=== PATIENT | female | born 1960 | race Caucasian/White ===

== ENCOUNTER 2017-06-17 12:18 | Observation (INO) | payer BC ==
[2017-06-17] MEDS ORDERED: PROVENTIL 2.5 MG/3 ML NEB IH ONE ×2 (12:54)
[2017-06-17] MEDS ORDERED: solu-MEDROL 125 MG IV ONE (12:54)
[2017-06-17] MEDS ORDERED: Sodium Chloride 0.9% 1000 ML 1,000 ML IV STA (12:54)
[2017-06-17] MEDS ORDERED: FEVERALL 650 MG PR STA (13:11)
--- NOTE | 2017-06-17 13:11 | ERPHSYRPT ---
- History of Present Illness Time Seen by Provider: 06/17/17 12:50 Source: patient Patient Subjective Stated Complaint: PT STATES SHE WAS SENT FROM DR'S OFFICE FOR LOW O2 SATURATION AND FLU. Triage Nursing Assessment: PT PINK, WARM, DRY. LUNG SOUNDS DIMINISHED IN LEFT POSTERIOR LOBE. PT FEBRILE 102.8. Physician History: CC: flu Hx: 56 y/o patient with hx of COPD and prior lung resection. She has cough, vomiting, malaise for one week since . She went to doctor office and had flu positive. She had low oxygen in 84% range even after neb so was sent to ER. She sees Dr Asencio. She had fever and chills. Timing/Duration: week(s) (1) Allergies/Adverse Reactions: Penicillins Allergy (Verified 06/17/17 13:04) Home Medications: Tiotropium [place] Inhaler [Spiriva 18 Mcg/Cap Inhaler] 1 puff IH DAILY [History] Famotidine 20 mg PO DAILY 06/17/17 [History] Metoprolol Tartrate 25 mg [Lopressor 25MG Tab] 25 mg PO DAILY 06/17/17 [ History] Hx Tetanus, Diphtheria Vaccination/Date Given: Yes (UNKNOWN) Hx Influenza Vaccination/Date Given: No Hx Pneumococcal Vaccination/Date Given: No Immunizations Up to Date: Yes - Review of Systems Constitutional: Fever, Chills, Fatigue, Malaise, Weakness Eyes: No Symptoms Ears, Nose, & Throat: Nose Congestion Respiratory: Cough, Dyspnea, Wheezing Cardiac: No Chest Pain Abdominal/Gastrointestinal: Nausea, Vomiting, Diarrhea, No Abdominal Pain Genitourinary Symptoms: No Dysuria Musculoskeletal: Myalgias Skin: No Rash Neurological: Headache All Other Systems: Reviewed and Negative - Past Medical History Pertinent Past Medical History: Yes Neurological History: Migraines ENT History: Other Cardiac History: High Cholesterol Respiratory History: COPD Endocrine Medical History: No Pertinent History Musculoskeletal History: No Pertinent History GI Medical History: Gallbladder Disease History: No Pertinent History Psycho-Social History: No Pertinent History Female Reproductive Disorders: No Pertinent History Other Medical History: occular migrains, detatched retina in rt eye - Past Surgical History Past Surgical History: Yes Respiratory: Lobectomy Gastrointestinal: Cholecystectomy, Hernia Repair Female Surgical History: Hysterectomy, Tubal Ligation Other Surgical History: ABLATION-UTERINE. LUNG SURGERY - Social History Smoking Status: Former smoker How long have you smoked: 43 Exposure to second hand smoke: Yes Drug Use: none Patient Lives Alone: No - Female History Hx Now: No - Nursing Vital Signs Nursing Vital Signs: Initial Vital Signs O2 Sat by Pulse Oximetry 91 L 06/17/17 12:40 Pain Scale Pain Intensity 0 - Physical Exam General Appearance: alert, other (frail appearing) Eye Exam: PERRL/EOMI Ears, Nose, Throat Exam: dry mucous membranes Neck Exam: normal inspection, non-tender, supple Respiratory Exam: rhonchi, wheezing Cardiovascular Exam: regular rate/rhythm, tachycardia Gastrointestinal/Abdomen Exam: soft, No tenderness, No distention Back Exam: normal inspection Extremity Exam: normal inspection, normal range of motion, No calf tenderness, No pedal edema Neurologic Exam: alert, oriented x 3, cooperative, sensation nml, No motor deficits Skin Exam: warm, dry, No rash SpO2 Interpretation: hypoxic, O2 applied SpO2: 91 Oxygen Delivery: Room Air - Course Nursing assessment & vital signs reviewed: Yes - Radiology Exams cxr X-ray Interpretation: Teleradiologist Report (new right base infiltrate/ atelecatasis, stable hital hernia with intrathoracic stomach) Ordered Tests: Active Orders 24 hr Category Date Time Status Radio Electrician STAT Care 06/17/17 12:55 Active EKG-ER Only STAT Care 06/17/17 12:54 Active IV Insertion STAT Care 06/17/17 12:54 Active Oxygen-ED Only NASAL CANNULA 2 lpm Care 06/17/17 12:50 Active Pulse Oximetry (ED) STAT Care 06/17/17 12:50 Active CHEST 1 VIEW (PORTABLE) Stat Exams 06/17/17 12:54 Completed BLOOD CULTURE Stat Lab 06/17/17 13:26 Received CBC W DIFF Stat Lab 06/17/17 13:20 Completed CMP Stat Lab 06/17/17 13:20 Completed Lactic Acid Stat Lab 06/17/17 13:18 Completed VENOUS BLOOD GAS Stat Lab 06/17/17 13:18 Completed Respiratory Nebulizer STAT RT 06/17/17 12:55 Completed Medication Summary Discontinued Medications Generic Name Dose Route Start Last Admin Trade Name Freq PRN Reason Stop Dose Admin Acetaminophen 975 mg 06/17/17 13:11 Feverall 650 Mg UT 06/17/17 13:12 STAT STA Acetaminophen 600 mg 06/17/17 13:20 06/17/17 13:35 Tylenol Suspension 160 Mg/5 Ml PO 06/17/17 13:21 600 mg STAT ONE Administration Acetaminophen Confirm 06/17/17 13:25 Tylenol Infant Drops Administered 06/17/17 13:26 Dose 160 mg .ROUTE .STK-MED ONE Acetaminophen Confirm 06/17/17 13:26 Tylenol Suspension 160 Mg/5 Ml Administered 06/17/17 13:27 Dose 160 mg .ROUTE .STK-MED ONE Albuterol Sulfate Confirm 06/17/17 12:54 Proventil 2.5 Mg/3 Ml Neb Administered 06/17/17 12:55 Dose 2.5 mg IH .STK-MED ONE Albuterol Sulfate 2.5 mg 06/17/17 12:54 06/17/17 13:02 Proventil 2.5 Mg/3 Ml Neb IH 06/17/17 12:55 2.5 mg STAT ONE Administration Sodium Chloride 1,000 mls @ 999 mls/hr 06/17/17 12:54 06/17/17 13:31 Sodium Chloride 0.9% 1000 Ml IV 06/17/17 13:54 999 mls/hr .Q1H1M STA Administration Sodium Chloride Confirm 06/17/17 13:25 Sodium Chloride 0.9% 1000 Ml Administered 06/17/17 13:26 Dose 1,000 mls @ ud .ROUTE .STK-MED ONE Ceftriaxone Sodium/Dextrose 1 g in 50 mls @ 100 mls/hr 06/17/17 13:35 13:53 Rocephin 1 Gm-D5w 50 Ml Bag IV 06/17/17 14:04 100 mls/hr STAT STA Administration Azithromycin 500 mg in 250 mls @ 250 mls/hr 06/17/17 13:35 Zithromax 500 Mg/ 250 Ml Nacl Premix IV 06/17/17 14:34 STAT STA Ceftriaxone Sodium/Dextrose Confirm 06/17/17 13:46 Rocephin 1 Gm-D5w 50 Ml Bag Administered 06/17/17 13:47 Dose 1 g in 50 mls @ ud IV .STK-MED ONE Methylprednisolone Sodium Succinate 125 mg 06/17/17 12:54 06/17/17 13:31 Solu-Medrol 125 Mg IV 06/17/17 12:55 125 mg STAT ONE Administration Methylprednisolone Sodium Succinate Confirm 06/17/17 13:25 Solu-Medrol 125 Mg Administered 06/17/17 13:26 Dose 125 mg .ROUTE .STK-MED ONE Lab/Rad Data: Laboratory Result Diagrams 06/17/17 13:20 06/17/17 13:20 Laboratory Results 06/17/17 06/17/17 06/17/17 Range/Units 13:20 13:20 13:18 WBC 3.2 L (4.0-10.5) K/mm3 RBC 4.68 (4.1-5.4) M/mm3 Hgb 14.1 (12.0-16.0) gm/dl Hct 43.1 (35-47) % MCV 92.1 (78-100) fl MCH 30.1 (26-32) pg MCHC 32.7 (32-36) g/dl RDW 15.8 H (11.5-14.0) % Plt Count 147 L (150-450) K/mm3 MPV 10.4 H (6-9.5) fl Gran % 56.0 (36.0-66.0) % Lymphocytes % 34.0 (24.0-44.0) % Monocytes % 9.7 (0.0-12.0) % Eosinophils % 0.0 (0.00-5.0) % Basophils % 0.3 (0.0-0.4) % Basophils # 0.01 (0-0.4) VBG pH 7.36 (7.32-7.42) VBG pCO2 at Pat Temp 51 (42-55) mm/Hg VBG pO2 at Pat Temp 22 L (25-40) mm/Hg VBG HCO3 28.8 H (22-28) meq/L VBG O2 Sat (Gisela) 49.3 L (95-100) VBG Base Excess 2.2 H (-2.0-2.0) VBG Hemoglobin 14.9 VBG Carboxyhemoglobin 2.0 (0.0-6.9) % T HGB POC Potassium 3.4 L (3.5-5.1) Sodium 137 (136-145) mEq/L Potassium 3.5 (3.5-5.1) mEq/L Chloride 99 (98-107) mEq/L Carbon Dioxide 26.8 (21-32) mEq/L Anion Gap 15.1 H (5-15) MEQ/L BUN 8 L (9-20) mg/dL Creatinine 0.95 (0.55-1.30) mg/dl Estimated GFR > 60 ML/MIN Glucose 94 (70-110) MG/DL Lactic Acid 1.1 (0.4-2.0) Calcium 8.6 (8.5-10.1) mg/dL Total Bilirubin 0.30 (0.2-1.0) mg/dL AST 37 (15-37) U/L ALT 25 (12-78) U/L Alkaline Phosphatase 79 (46-116) U/L Serum Total Protein 7.8 (6.4-8.2) gm/dL Albumin 3.8 (3.4-5.0) g/dL - Progress Progress Note: 06/17/17 14:39 She has flu, pneumonia and COPD with hypoxemia. CAlled Dr Asencio for observation. He advised no tamiflu since symptoms for one week. Discussed with : Jack Will see patient in: hospital (observation) Counseled pt/family regarding: lab results, diagnosis, need for follow-up - Departure Time of Disposition: 14:39 Departure Disposition: Observation Clinical Impression: Influenza, COPD exacerbation, Hypoxemia Condition: Fair Critical Care Time: No Referrals: CICI ASENCIO MD [Primary Care Provider] - Instructions: Chronic Obstructive Pulmonary Disease
[2017-06-17] MEDS ORDERED: TYLENOL SUSPENSION 160 MG/5 ML PO ONE (13:20)
[2017-06-17 13:22] LABS: Lactic Acid 1.1 (0.4-2.0); VBG BASE EXCESS 2.2 (-2.0-2.0); VBG HCO3- 28.8 meq/L (22-28); VBG HEMOGLOBIN 14.9; VBG O2 SATURATION 49.3 (95-100); VBG POTASSIUM 3.4 (3.5-5.1); VBG pH 7.36 (7.32-7.42)
[2017-06-17] MEDS ORDERED: Sodium Chloride 0.9% 1000 ML 1,000 ML ONE (13:25)
[2017-06-17] MEDS ORDERED: TYLENOL INFANT DROPS ONE (13:25)
[2017-06-17] MEDS ORDERED: solu-MEDROL 125 MG ONE (13:25)
[2017-06-17] MEDS ORDERED: TYLENOL SUSPENSION 160 MG/5 ML ONE (13:26)
--- NOTE | 2017-06-17 13:29 | XRAY ---
Indication: Cough and short of breath. Comparison: January 09, 2016. Portable chest again demonstrates large intrathoracic stomach in the left lung base with adjacent atelectasis. New subtle right base infiltrate versus atelectesis. Heart is not enlarged. Stable right hilar surgical clips. Vascularity normal. Bony thorax intact. Impression: 1. New right base infiltrate/atelectasis. Correlate clinically. 2. Stable hiatal hernia with intrathoracic stomach.
[2017-06-17] MEDS ORDERED: ROCEPHIN 1 Gm-D5w 50 ml Bag** 1 G/50 ML IVPB IV STA (13:35)
[2017-06-17] MEDS ORDERED: Zithromax 500 MG/ 250 ML NaCl Premix 500 MG/250 ML IVPB IV STA (13:35)
[2017-06-17 13:39] LABS: BASOPHIL % 0.3 % (0.0-0.4); Basophil (Absolute #) 0.01 (0-0.4); Eosinophil (Absolute #) 0 (0-0.5); Hematocrit 43.1 % (35-47); Hemoglobin 14.1 gm/dl (12.0-16.0); Lymphocyte (Absolute #) 1.09 (1.0-4.6); Mean Cell Volume 92.1 fl (78-100); Mean Corpuscular Hemoglobin 30.1 pg (26-32); Mean Corpuscular Hgb Concent. 32.7 g/dl (32-36); Mean Platelet Volume 10.4 fl (6-9.5); Monocyte (Absolute #) 0.31 (0.0-1.3); Monocytes % 9.7 % (0.0-12.0); Platelet Count 147 K/mm3 (150-450); Red Blood Count 4.68 M/mm3 (4.1-5.4); Red Cell Distribution Width 15.8 % (11.5-14.0); White Blood Count 3.2 K/mm3 (4.0-10.5)
[2017-06-17] MEDS ORDERED: ROCEPHIN 1 Gm-D5w 50 ml Bag** 1 G/50 ML IVPB IV ONE (13:46)
[2017-06-17 14:03] LABS: ALBUMIN 3.8 g/dL (3.4-5.0); ALKALINE PHOSPHATASE 79 U/L (46-116); ANION GAP 15.1 MEQ/L (5-15); BLOOD UREA NITROGEN 8 mg/dL (9-20); CHLORIDE 99 mEq/L (98-107); Calcium 8.6 mg/dL (8.5-10.1); Carbon Dioxide 26.8 mEq/L (21-32); Creatinine 1 0.95 mg/dl (0.55-1.30); EST GLOMERULAR FILTRATION RATE > 60 ML/MIN; Glucose 94 MG/DL (70-110); Potassium 3.5 mEq/L (3.5-5.1); SGOT/AST 37 U/L (15-37); SGPT/ALT 25 U/L (12-78); SODIUM 137 mEq/L (136-145); Total Protein 7.8 gm/dL (6.4-8.2)
[2017-06-17] MEDS ORDERED: TYLENOL 325 MG PO PRN (15:17)
[2017-06-17] MEDS ORDERED: PROVENTIL 2.5 MG/3 ML NEB IH PRN (15:17)
[2017-06-17] MEDS: ECOTRIN 81 MG PO SCH (17:59)
[2017-06-17] MEDS: Lopressor 25MG Tab PO SCH (17:59)
[2017-06-17] MEDS: solu-MEDROL 125 MG IV SCH (18:00)
[2017-06-17] MEDS: D5W/0.45NS W/ 20mEq KCl 1000 ML 1,000 ML IV SCH (18:00)
[2017-06-17] MEDS: DUONEB 0.5-3 MG/3 ml Neb IH SCH ×2 (20:13→23:20)
[2017-06-17] MEDS ORDERED: Pepcid 20 MG VIAL IV SCH (22:00)
[2017-06-18] MEDS: solu-MEDROL 125 MG IV SCH ×3 (01:49→11:15)
[2017-06-18] MEDS: DUONEB 0.5-3 MG/3 ml Neb IH SCH ×2 (03:11→07:05)
[2017-06-18] MEDS: D5W/0.45NS W/ 20mEq KCl 1000 ML 1,000 ML IV SCH (03:23)
--- NOTE | 2017-06-18 08:41 | PCM.SSS ---
History of Present Illness - Chief Complaint Chief Complaint: influenza, COPD, hypoxemia History of Present Illness: is a 56 year old female who presented with influenza and shortness of breath to the ER, she tested positive for flu yesterday, has had symptoms for a week. has copd, has ventolin and spiriva at home. is not on home oxygen. - Review of Systems Constitutional: Fever, Chills Ears, Nose, & Throat: No Symptoms Respiratory: Cough, Short Of Breath Cardiac: No Chest Pain, No Edema, No Syncope Abdominal/Gastrointestinal: No Abdominal Pain, No Nausea, No Vomiting, No Diarrhea Skin: No Rash All Other Systems: Reviewed and Negative Medications & Allergies Home Medications: Home Medication List Tiotropium [place] Inhaler [Spiriva 18 Mcg/Cap Inhaler] 1 puff IH DAILY [History Confirmed 06/17/17] Albuterol 2.5 mg/0.5 ml [PROVENTIL Solution 2.5 MG/0.5 ML] 2.5 mg IH Q6HPRN PRN 06/17/17 [History Confirmed 06/17/17] Aspirin 81 gm Chew [Baby Aspirin 81 mg Chew] 81 mg PO DAILY 06/17/17 [ History Confirmed 06/17/17] Famotidine 20 mg PO DAILY 06/17/17 [History Confirmed 06/17/17] Metoprolol Tartrate 25 mg [Lopressor 25MG Tab] 25 mg PO DAILY 06/17/17 [ History Confirmed 06/17/17] Doxycycline Hyclate 100 mg [Vibramycin 100 MG] 100 mg PO BID #20 tab 06/18 [Rx] Methylprednisolone [Medrol Dose Pack] 4 mg PO UD #1 pack 06/18/17 [Rx] Allergies/Adverse Reactions: Allergies Allergy/AdvReac Type Severity Reaction Status Date / Time Penicillins Allergy Verified 06/17/17 13:04 - Past Medical History Past Medical History: Yes Neurological History: Migraines ENT History: Other Cardiac History: High Cholesterol Respiratory History: COPD Endocrine Medical History: No Pertinent History Musculoskelatal History: No Pertinent History GI Medical History: Gallbladder Disease History: No Pertinent History Pyscho-Social History: No Pertinent History Reproductive Disorders: No Pertinent History Comment: occular migrains, detatched retina in rt eye - Female History Are you now?: No - Past Surgical History Past Surgical History: Yes Respiratory Surgery: Lobectomy GI Surgical History: Cholecystectomy, Hernia Repair Female Surgical History: Hysterectomy, Tubal Ligation Other Surgical History: right lower lobectomy (childhood) - Social History Smoking Status: Former smoker How long have you smoked: 43 Exposure to second hand smoke: Yes Alcohol: None Drug Use: none - Physical Exam Vital Signs: Vital Signs - 24 hr Temp Pulse Resp BP Pulse Ox 06/18/17 08:00 98.1 F 81 20 103/68 92 L 06/18/17 07:05 81 20 92 L 06/18/17 04:00 97.6 F 81 22 102/62 94 L 06/18/17 03:00 71 16 92 L 06/18/17 00:00 97.5 F 76 18 93/62 92 L 06/17/17 23:00 77 18 92 L 06/17/17 19:52 97.2 F 67 24 101/57 95 06/17/17 19:25 71 18 92 L 06/17/17 17:30 97.8 F 92 H 20 117/66 96 06/17/17 16:01 84 20 94 L 06/17/17 14:40 91 L 06/17/17 14:27 96 H 22 107/73 97 06/17/17 13:03 104 H 96 06/17/17 12:42 102.8 F 111 H 24 121/90 91 L 06/17/17 12:40 91 L Oxygen-Last 24 hours O2 Percentage 2 Liters = 28% O2 Percentage 2 Liters = 28% O2 Percentage 2 Liters = 28% O2 Percentage 2 Liters = 28% O2 Percentage 2 Liters = 28% O2 Percentage 2 Liters = 28% General Appearance: no apparent distress, alert Eye Exam: PERRL/EOMI, eyes nml inspection Respiratory Exam: prolonged expirations, rhonchi (minimal rhonchi in bases) Cardiovascular Exam: regular rate/rhythm, normal heart sounds, normal peripheral pulses Gastrointestinal/Abdomen Exam: soft, normal bowel sounds, No tenderness, No mass Extremity Exam: normal inspection, normal range of motion, pelvis stable Skin Exam: normal color, warm, dry, No rash Results - Labs Lab/Micro Results: Lab Results-Last 24 Hours 06/17/17 06/17/17 06/18/17 Range/Units 18:08 20:50 03:15 Troponin I < 0.017 < 0.017 < 0.017 (0.000-0.056) ng/ml - Other Procedures and Tests Respiratory Therapy 06/17/17 19:00 Respiratory Nebulizer Q4H 06/18/17 07:00 Respiratory MDI DAILY Assessment/Plan (1) COPD exacerbation Current Visit: Yes Status: Acute Code(s): J44.1 - CHRONIC OBSTRUCTIVE PULMONARY DISEASE W (ACUTE) EXACERBATION (2) Influenza Current Visit: Yes Status: Acute Code(s): J11.1 - FLU DUE TO UNIDENTIFIED INFLUENZA VIRUS W OTH RESP MANIFEST (3) Pneumonia Current Visit: Yes Status: Acute Code(s): J18.9 - PNEUMONIA, UNSPECIFIED ORGANISM Hospital Summary - Vitals & Intake/Output Vital Signs: Vital Signs Temperature 98.1 F 06/18/17 08:00 Pulse Rate 81 06/18/17 08:00 Respiratory Rate 20 06/18/17 08:00 Blood Pressure 103/68 06/18/17 08:00 O2 Sat by Pulse Oximetry 92 L 06/18/17 08:00 Oxygen-Last Documented O2 Percentage 2 Liters = 28% Intake & Output: Intake & Output 06/15/17 06/16/17 06/17/17 06/18/17 11:59 11:59 11:59 11:59 Intake Total 2514 Output Total 1050 Balance 1464 Weight 62.2 kg - Lab Result Diagrams: 06/17/17 13:20 06/17/17 13:20 Lab Results-Last 24 Hrs: Lab Results-Last 24 Hours 06/17/17 06/17/17 06/18/17 Range/Units 18:08 20:50 03:15 Troponin I < 0.017 < 0.017 < 0.017 (0.000-0.056) ng/ml - Procedures and Test Procedures and Tests throughout Hospitalization: Therapy Orders & Screens 06/17/17 19:00 Respiratory Nebulizer Q4H Comment: DUONEB Q4 Diagnosis: Shortness of Breath 06/18/17 07:00 Respiratory MDI DAILY Comment: SPIRIVA DAILY Diagnosis: Shortness of Breath - Discharge Disposition: Home, Self-Care Condition: Good Prescriptions: New Methylprednisolone [Medrol Dose Pack] 4 mg PO UD #1 pack Doxycycline Hyclate 100 mg [Vibramycin 100 MG] 100 mg PO BID #20 tab Continue Tiotropium [place] Inhaler [Spiriva 18 Mcg/Cap Inhaler] 1 puff IH DAILY Metoprolol Tartrate 25 mg [Lopressor 25MG Tab] 25 mg PO DAILY Famotidine 20 mg PO DAILY Aspirin 81 gm Chew [Baby Aspirin 81 mg Chew] 81 mg PO DAILY Albuterol 2.5 mg/0.5 ml [PROVENTIL Solution 2.5 MG/0.5 ML] 2.5 mg IH Q6HPRN PRN PRN Reason: Shortness Of Breath/Wheezing Instructions: Chronic Obstructive Pulmonary Disease Additional Instructions: use ventolin inhaler every 4 to 6 hours while awake, take medrol and doxycycline as directed. drink plenty of fluids and get plenty of rest. return for new symptoms or worsening condition. see Dr Asencio in 1 week Follow up with: CICI ASENCIO MD [Primary Care Provider] -
[2017-06-18] MEDS ORDERED: BABY ASPIRIN 81 MG CHEW PO SCH (10:00)
[2017-06-18] MEDS ORDERED: Zithromax 500 MG/ 250 ML NaCl Premix 500 MG/250 ML IVPB IV SCH (10:00)
[2017-06-18] MEDS ORDERED: Spiriva 18 Mcg/Cap Inhaler IH SCH (10:00)
[2017-06-18] MEDS ORDERED: Pepcid 20 MG PO SCH (10:00)
[2017-06-18] MEDS ORDERED: ROCEPHIN 1 Gm-D5w 50 ml Bag** 1 G/50 ML IVPB IV SCH (10:00)
[2017-06-18] MEDS: ECOTRIN 81 MG PO SCH (10:07)
[2017-06-18] MEDS: Lopressor 25MG Tab PO SCH (10:07)
[2017-06-18 13:35] VITALS: O2SAT 93
[2017-06-18 14:28] VITALS: BP 92/53; PULSE 87
== END 2017-06-18 14:37 | disposition home or self-care (01) ==
LOC: ED 12:18 → MED SURG 15:10
PROVIDERS: ADMIT Family Medicine; ATTEND Family Medicine
DX: J44.1 Chronic obstructive pulmonary disease with (acute) exacerbation (principal); J11.1 Influenza due to unidentified influenza virus with other respiratory manifestations; J18.9 Pneumonia, unspecified organism; R09.02 Hypoxemia; Z79.899 Other long term (current) drug therapy
CPT/HCPCS: 36000; 36415; 71045; 80053; 82805; 83605; 84484; 85025; 87040; 87400; 93005; 93041; 93268; 94150; 94640; 94760; 96360; 96361; 96365; 99285; G0378; J0456; J0696; J2930; A9270-GY